=== PATIENT | female | born 1980 | race Caucasian/White ===

== ENCOUNTER 2016-11-25 12:18 | Emergency (ER) | payer OTHER ==
[~2016-11-25] VITALS: Ht 172.7 cm; Wt 68.0 kg
[~2016-11-25 12:18] MED LIST: ESTRADIOL 1 MG T1 M1 PO; FLEXERIL PO; IBUPROFEN 800800 M1 PO; MEDROLDOSEPACK PO; SERTRALINE HCL100 MG PO; WELLBUTRIN XL150 MG PO; XANAX1 MG PO
[2016-11-25] MEDS ORDERED: IBUPROFEN 600600 M1 PO (15:25)
[2016-11-25] MEDS ORDERED: TIZANIDINE HCL4 MG PO (15:25)
[2016-11-25 15:57] VITALS: BP 102/64
== END 2016-11-25 15:58 | disposition home or self-care (01) ==
LOC: ER 12:18
DX: S60.042A Contusion of left ring finger without damage to nail, initial encounter (principal); M25.562 Pain in left knee; M79.642 Pain in left hand; Z88.4 Allergy status to anesthetic agent; Z88.5 Allergy status to narcotic agent; Z91.018 Allergy to other foods; W17.2XXA Fall into hole, initial encounter; Y93.89 Activity, other specified; Y92.89 Other specified places as the place of occurrence of the external cause; Y99.0 Civilian activity done for income or pay